=== PATIENT | male | born 1945 | race Caucasian/White ===

== ENCOUNTER → 2018-09-18 10:44 | Outpatient (CLI) | payer OTHER ==
--- NOTE | 2018-09-22 09:24 | EC ---
PATIENT:SHARAD VILLALOBOS DATE OF SERVICE: 09/18/18 SEX: M MEDICAL RECORD: [id number] DATE OF : 47 LOCATION:[facility] AGE OF PATIENT: 73 ADMISSION DATE: 09/18/18 REFERRING PHYSICIAN: INTERPRETING PHYSICIAN: NOE DUCKWORTH MD ECHOCARDIOGRAM REPORT ECHO CHARGES 4 ECHO COMPLETE Date: 09/18/18 CLINICAL DIAGNOSIS: CAD ECHOCARDIOGRAPHIC MEASUREMENTS (adult normal given) AC root (d.<3.7cm) 4.2 cm LV Septum d (<1.2 cm> 1.1 cm Valve Excursion 2.2 cm LV Septum (systole) 1.4 cm Left Atria (s.<4.0cm> 3.1 cm LVPW d(<1.2cm) 1.3 cm RV (d.<2.3cm) 3.5 cm LVPW (sytole) 1.4 cm LV diastole(<5.6CM) 5.8 cm MV E-F(>70mm/sec) cm LV systole 4.5 cm LVOT Diameter 2.4 cm MV exc.(>10mm) cm Est.ejection fraction (50-75%) % DOPPLER: LVIT cm/sec A 82 cm/sec E 74 cm/sec LA cm/sec RVSP 29.5 mmHg LVOT 111 cm/sec AOP1/2T m/s Asc. Ao 128 cm/sec RVOT 80 cm/sec RA cm/sec PA 89 cm/sec AV Gradient Peak 6.6 mmHg AV Mean 3.6 mmHg AV Area 4.5 cm MV Gradient Peak 3.7 mmHg MV Mean 2.1 mmHg MV Area cm COMMENTS: Fire Protection Engineer: Morenita ELLIOTT Display Department Manager: 3 Dr. Mejias TAPE# PACS Pericardial Effusion N DATE OF SERVICE: No LVH. LV internal dimensions are normal. Wall motion is normal. EF is greater than or equal to 55%. Aortic valve is tricuspid. No evidence of stenosis by Doppler interrogation. Left atrium normal at 3.1 cm. Mitral valve shows no prolapse. Trace MR. Right-sided chambers grossly normal. Trace TR. 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
== END | disposition home or self-care (01) ==
LOC: D.ECHO 10:30
PROVIDERS: ATTEND Orthopaedic Surgery
DX: I25.10 Atherosclerotic heart disease of native coronary artery without angina pectoris (principal)

== ENCOUNTER → 2018-10-04 09:55 | Outpatient (CLI) | payer OTHER | END | disposition home or self-care (01) | LOC: D.CN 09:55 | DX: I49.9 Cardiac arrhythmia, unspecified (principal) ==